=== PATIENT | female | born 1990 | race African-American/Black ===

== ENCOUNTER 2017-06-30 17:00 | Emergency (ER) | payer OTHER ==
[2017-06-30] MEDS ORDERED: Ondansetron HCl/PF 4 MG/2 ML Vial ONE (17:59)
[2017-06-30 18:04] LABS: #Lymphocytes 1.3 thou/uL (1.20-3.40); #Monocytes 0.5 thou/uL (0.11-0.59); #Neutrophils 8.8 thou/uL (1.40-6.50); %Basophils 0.3 % (0.0-1.0); %Eosinophils 0.1 % (0.0-10.0); %Lymphocytes 11.8 % (21.0-51.0); %Monocytes 4.3 % (0.0-10.0); Hematocrit 45.8 % (36.0-47.0); Mean Platelet Volume 7.3 fL (7.4-10.4); Red Blood Cell (RBC) Count 4.98 mill/uL (4.20-5.40); White Blood Cell (WBC) Count 10.6 thou/uL (4.8-10.8)
[2017-06-30 18:11] LABS: Bilirubin Negative (Negative); Blood, Urine Trace (Negative); Glucose, Urine (Dipstick) Negative (Negative); Ketone, Urine 15 mg/dL (Negative); Nitrite Positive (Negative); Protein, Urine (Dipstick) 300 mg/dL (Neg-Trace); Urobilinogen 0.2 mg/dL (0.2-1.0)
[2017-06-30 18:14] LABS: Bacteria/HPF 4+ HPF (None Seen)
[2017-06-30 18:26] LABS: Hyaline Casts/LPF 0-3 HYALINE CAST LPF (0-3 Hyaline); Renal Epithelial None Seen HPF (0-3); Transitional Epithelial 0-3 HPF (0-3)
[2017-06-30 18:39] LABS: ALT (SGPT) 16 U/L (8-55); AST (SGOT) 17 U/L (5-34); Alkaline Phosphatase 101 U/L (40-150); Anion Gap 17 mmol/L (10-20); BUN (Urea Nitrogen) 11 mg/dL (7.0-18.7); Bilirubin, Total 0.6 mg/dL (0.2-1.2); Calc. Creatinine Clearance 0 mL/min (70-130); Carbon Dioxide 21 mmol/L (22-29); Chloride 99 mmol/L (98-107); Estimated GFR-MDRD Greater than 90; Globulin 5.1 g/dL (2.4-3.5); Lipase 18 U/L (8-78); Protein, Total 10.1 g/dL (6.0-8.3)
--- OUTSIDE RECORDS SUMMARY | 2017-07-04 11:02 | XMS | Summary of Care ---
:1990 Author Name Vero Harris Address Unavailable Unavailable , Care Team Providers Name Role Phone LEISA TRUJILLO Unavailable Unavailable JHONATHAN MARTINEZ Unavailable Unavailable MONSE BARNEY Unavailable Unavailable WHITE, TRAVUS Unavailable Unavailable JHONATHAN BOOTHE MD Unavailable Unavailable , Unavailable Unavailable Functional Status Name Dates Details Functional status health issues are not documented Status: Name Dates Details Cognitive status health issues are not documented Status: Problems Name Dates Details Encounter for supervision of normal (V22.1, Z34.90) Status:Active Anemia(285.9, D64.9) Status:Active Encounter for supervision of normal in third trimester(V22.1, Z34.93 ) Status:Active Genital herpes simplex(054.10, A60.00) Status:Active Supervision of normal , second trimester(V22.1, Z34.82) Status: Active growth restriction(764.90) Status:Active General counselling and advice on contraception(V25.09, Z30.09) Status: Active 6 weeks follow-up(V24.2, Z39.2) Status:Active Essential hypertension(401.9, I10) Status:Active Elevated BP(401.9, I10) Status:Active IUD check up(V25.42, Z30.431) Status:Active Encounter for IUD insertion(V25.11, Z30.430) Status:Active Subacute and chronic vaginitis(616.10, N76.1) Status:Active Pre-existing hypertension in obstetric context in third trimester(642.03, O10.913) Status:Active Contraception(V25.9, Z30.9) Status:Active Medications Name Dates Details Ferralet 90 90-1 MG Oral Tablet TAKE 1 TABLET DAILY Quantity:30 Refills:6 WHITEM.D., TRAVUS Start :31-Aug-2015 Active Valtrex 500 MG Oral Tablet TAKE 1 TABLET TWICE DAILY. Quantity:60 Refills:1 KARRAMM.D., MONSE Start :08-Dec-2015 Active Doxycycline Monohydrate 100 MG Oral Capsule Take 2 tablets once Quantity:2 Refills:0 MIKE, JHONATHAN Start :22-Feb-2016 Active Allergies and Adverse Reactions Name Dates Details No Known Drug Allergies(Allergy) Status:Active Past Medical History Name Dates Details History of (V13.29) Status:Resolved Procedures Procedure Dates Details Procedures not documented Immunization Name Dates Details Tdap (Adacel) on:06-Oct-2015 Lot #:[id number] Family History Name Dates Details Family history of hypertension(V17.49, Z82.49) Status:Active Family history of asthma(V17.5, Z82.5) Status:Active Name Dates Details Family history of hypertension(V17.49, Z82.49) Status:Active Family history of High cholesterol(272.0, E78.00) Status:Active Social History Name Dates Details - Status: Name Dates Details Smoker. current status unknown Never smoker Vital Signs Date Test Result Details 96-Ppl-654655:20 BP Systolic 138mm[Hg] Status:Comments:Location: LUE; Position: Sitting BP Diastolic 92mm[Hg] Status:Comments:Location: LUE; Position: Sitting Height 62in Status: Weight 153.375lb Status: Body Mass Index Calculated 28.05kg/m2 Status: Body Surface Area Calculated 1.71m2 Status: Temperature 98.1f Status:Comments:Method: Tympanic Heart Rate 96/min Status:Comments:Location: L Brachial Artery; Quality: Normal Respiration Rate 14/min Status:Comments:Quality: Normal Results Date Description Value Details Results not documented Plan of Care Name Dates Details Planned Observations Planned Goals not documented Instructions Name Dates Details Instructions not documented Encounters Appointment; MARY BETH PETERSON M.D. On:30-Aug-2015 13:00 Encounter Diagnosis:Problem not documented Appointment; MANAGER MANAGED BACKUP SERVICES, ROOM1 On:06-Sep-2015 14:15 Encounter Diagnosis:Problem not documented Appointment; LEIGHANN WEST M.D. On:06-Sep-2015 15:00 Encounter Diagnosis:Problem not documented Appointment; LEIGHANN WEST M.D. On:06-Oct-2015 13:30 Encounter Diagnosis:Problem not documented Appointment; OB/RES, ULTRASOUND On:18-Oct-2015 14:00 Encounter Diagnosis:Problem not documented Appointment; MANAGER MANAGED BACKUP SERVICES, ROOM1 On:26-Oct-2015 15:15 Encounter Diagnosis:Problem not documented Appointment; MARY BETH PETERSON M.D. On:01-Nov-2015 10:30 Encounter Diagnosis:Problem not documented Appointment; OB/RES, ULTRASOUND On:01-Nov-2015 11:30 Encounter Diagnosis:Problem not documented Appointment; MANAGER MANAGED BACKUP SERVICES, ROOM2 On:08-Nov-2015 11:15 Encounter Diagnosis:Problem not documented Appointment; MANAGER MANAGED BACKUP SERVICES, ROOM2 On:17-Nov-2015 7:45 Encounter Diagnosis:Problem not documented Appointment; MARY BETH PETERSON M.D. On:17-Nov-2015 8:45 Encounter Diagnosis:Problem not documented Appointment; MANAGER MANAGED BACKUP SERVICES, ROOM1 On:24-Nov-2015 10:00 Encounter Diagnosis:Problem not documented Appointment; MARY BETH PETERSON M.D. On:01-Dec-2015 8:45 Encounter Diagnosis:Problem not documented Appointment; , PROVIDER On:01-Dec-2015 10:00 Encounter Diagnosis:Problem not documented Appointment; OB/RES, ULTRASOUND On:01-Dec-2015 15:30 Encounter Diagnosis:Problem not documented Appointment; MARY BETH PETERSON M.D. On:08-Dec-2015 9:00 Encounter Diagnosis:Problem not documented Appointment; OB/RES, ULTRASOUND On:09-Dec-2015 15:30 Encounter Diagnosis:Problem not documented Appointment; OB/RES, ULTRASOUND On:15-Dec-2015 10:30 Encounter Diagnosis:Problem not documented Appointment; ROBERT TONG M.D. On:15-Dec-2015 11:00 Encounter Diagnosis:Problem not documented Appointment; OB/RES, ULTRASOUND On:22-Dec-2015 13:30 Encounter Diagnosis:Problem not documented Appointment; JHONATHAN MARTINEZ M.D. On:01-Feb-2016 14:00 Encounter Diagnosis:Problem not documented Appointment; LEISA TRUJILLO M.D. On:15-Feb-2016 13:00 Encounter Diagnosis:Problem not documented Appointment; JHONATHAN MARTINEZ M.D. On:15-Feb-2016 14:00 Encounter Diagnosis:Problem not documented Appointment; JHONATHAN MARTINEZ M.D. On:22-Feb-2016 11:15 Encounter Diagnosis:Problem not documented Appointment; FELIZ NURSE On:22-Feb-2016 13:00 Encounter Diagnosis:Problem not documented Appointment; LEISA TRUJILLO M.D. On:24-Apr-2017 15:00 Encounter Diagnosis:Problem not documented
--- OUTSIDE RECORDS SUMMARY | 2017-07-04 11:02 | XMS | Summary of Care ---
:1990 Author Name LEISA TRUJILLO Address Unavailable Unavailable , Care Team Providers Name Role Phone TRUJILLOLEISA Unavailable Unavailable JHONATHAN MARTINEZ Unavailable Unavailable MONSE BARNEY Unavailable Unavailable WHITE TRAV Unavailable Unavailable JHONATHAN BOOTHE MD Unavailable Unavailable [...] third trimester(642.03, O10.913) Status:Active Contraception(V25.9, Z30.9) Status:Active Gastroenteritis(558.9, K52.9) Status:Active Follow up(V67.9, Z09) Status:Active Medications Name Dates Details Ferralet 90 90-1 MG Oral Tablet TAKE 1 TABLET DAILY Quantity:30 Refills:6 WHITEM.DBonnie, TRAVUS Start :31-Aug-2015 Active Valtrex 500 MG Oral Tablet TAKE 1 TABLET TWICE DAILY. Quantity:60 Refills:1 DINESHMONSE Start :08-Dec-2015 Active Doxycycline Monohydrate 100 MG Oral Capsule Take 2 tablets once Quantity:2 Refills:0 MIKEJHONATHAN Start :22-Feb-2016 Active Allergies and Adverse Reactions Name Dates Details No Known Drug Allergies(Allergy) Status:Active Past Medical History Name Dates Details History of (V13.29) Status:Resolved Procedures Procedure Dates Details [[facility]] CULTURE, STOOL (CAMPYLOBACTER, SALMONELLA/SHIGELLA) Date:24-Apr-2017 [[facility]] HELICOBACTER PYLORI AG, EIA, STOOL Date:24-Apr-2017 Immunization Name Dates Details Tdap (Adacel) on:06-Oct-2015 Lot #:[id number] Family History Name Dates Details Family history of hypertension(V17.49, Z82.49) Status:Active Family history of asthma(V17.5, Z82.5) Status:Active Name Dates Details Family history of hypertension(V17.49, Z82.49) Status:Active Family history of High cholesterol(272.0, E78.00) Status:Active Social History Name Dates Details - Status: Name Dates Details Smoker. current status unknown Never smoker Vital Signs Date Test Result Details [id number]-[id number]:20 BP Systolic 138mm[Hg] Status:Comments:Location: E; Position: Sitting BP Diastolic 92mm[Hg] Status:Comments:Location: E; Position: Sitting Height 62in Status: Weight 153.375lb Status: Body Mass Index Calculated 28.05kg/m2 Status: Body Surface Area Calculated 1.71m2 Status: Temperature 98.1f Status:Comments:Method: Tympanic Heart Rate 96/min Status:Comments:Location: Brachial Artery; Quality: Normal Respiration Rate 14/min Status:Comments:Quality: Normal Results Date Description Value Details 28-Bud-376537:00 [[facility]] HELICOBACTER PYLORI AG, EIA, STOOL H. pylori Stool Ag, EIA Negative Range:Negative 12-Nbq-695009:00 [L] Request Problem Request Problem [facility] Comments:No specimen received. TEST: [id number] Stool Culture Plan of Care Name Dates Details Planned Observations Planned Goals not documented Interventions Provided Labs/Procedures/Imaging[[facility]] CULTURE, STOOL (CAMPYLOBACTER, SALMONELLA/SHIGELLA) ; To Be Done: 24 Apr 2017[[facility]] HELICOBACTER PYLORI AG, EIA, STOOL; To Be Done: 24 Apr 2017 Instructions Name Dates Details Instructions not documented Encounters Appointment; MARY BETH PETERSON M.D. On:30-Aug-2015 13:00 Encounter Diagnosis:Problem not documented Appointment; MAMMOGRAPHER, ROOM1 On:06-Sep-2015 14:15 Encounter Diagnosis:Problem not documented Appointment; LEIGHANN WEST M.D. On:06-Sep-2015 15:00 Encounter Diagnosis:Problem not documented Appointment; LEIGHANN WEST M.D. On:06-Oct-2015 13:30 Encounter Diagnosis:Problem not documented Appointment; OB/RES, ULTRASOUND On:18-Oct-2015 14:00 Encounter Diagnosis:Problem not documented Appointment; MAMMOGRAPHER, ROOM1 On:26-Oct-2015 15:15 Encounter Diagnosis:Problem not documented Appointment; MARY BETH PETERSON M.D. On:01-Nov-2015 10:30 Encounter Diagnosis:Problem not documented Appointment; OB/RES, ULTRASOUND On:01-Nov-2015 11:30 Encounter Diagnosis:Problem not documented Appointment; MAMMOGRAPHER, ROOM2 On:08-Nov-2015 11:15 Encounter Diagnosis:Problem not documented Appointment; MAMMOGRAPHER, ROOM2 On:17-Nov-2015 7:45 Encounter Diagnosis:Problem not documented Appointment; MARY BETH PETERSON M.D. On:17-Nov-2015 8:45 Encounter Diagnosis:Problem not documented Appointment; MAMMOGRAPHER, ROOM1 On:24-Nov-2015 10:00 Encounter Diagnosis:Problem not documented [...]
--- OUTSIDE RECORDS SUMMARY | 2017-07-04 11:02 | XMS | Summary of Care ---
:1990 Author Name Juan Deras Address [facility] Unavailable , Care Team Providers Name Role Phone BraedenErnestoharishludmila Unavailable Unavailable JHONATHAN MARTINEZ Unavailable MONSE BARNEY Unavailable Unavailable WHITEMARY BETH Unavailable Unavailable JUAN PLATT MDJHONATHAN Unavailable Unavailable , Unavailable Unavailable Functional Status [...] Tablet TAKE 1 TABLET DAILY Quantity:30 Refills:6 KRISTENMMARY BETH Tate Start :31-Aug-2015 Active Valtrex 500 MG Oral Tablet TAKE 1 TABLET TWICE DAILY. Quantity:60 Refills:1 DINESHMONSE Start :08-Dec-2015 Active Doxycycline Monohydrate 100 MG Oral Capsule Take 2 tablets once Quantity:2 Refills:0 MIKEJHONATHAN Start :22-Feb-2016 Active Allergies and Adverse Reactions Name Dates Details No Known Drug Allergies(Allergy) Status:Active Past Medical History Name Dates Details History of (V13.29) Status:Resolved Procedures Procedure Dates Details [[facility]] HELICOBACTER PYLORI AG, EIA, STOOL Date:24-Apr-2017 [[facility]] CULTURE, STOOL (CAMPYLOBACTER, SALMONELLA/SHIGELLA) Date:24-Apr-2017 Immunization Name Dates Details Tdap (Adacel) on:06-Oct-2015 Lot #:[id number] Family History Name Dates Details Family history of hypertension(V17.49, Z82.49) Status:Active Family history of asthma(V17.5, Z82.5) Status:Active Name Dates Details Family history of hypertension(V17.49, Z82.49) Status:Active Family history of High cholesterol(272.0, E78.00) Status:Active Social History Name Dates Details - Status: Name Dates Details Smoker. current status unknown Never smoker Vital Signs Date Test Result Details 32-[id number]:20 BP Systolic 138mm[Hg] Status:Comments:Location: E; Position: Sitting BP Diastolic 92mm[Hg] Status:Comments:Location: [facility]; Position: Sitting Height 62in Status: Weight 153.375lb Status: Body Mass Index Calculated 28.05kg/m2 Status: Body Surface Area Calculated 1.71m2 Status: Temperature 98.1f Status:Comments:Method: Tympanic Heart Rate 96/min Status:Comments:Location: Brachial Artery; Quality: Normal Respiration Rate 14/min Status:Comments:Quality: Normal Results Date Description Value Details 31-[id number]:00 [[facility]] HELICOBACTER PYLORI AG, EIA, STOOL H. pylori Stool Ag, EIA Negative Range:Negative 33-Tdb-[id number]:00 [L] Request Problem Request Problem NOSR Comments:No specimen received. TEST: [id number] Stool Culture Plan of Care Name Dates Details Planned Observations Planned Goals not documented Instructions Name Dates Details Instructions not documented Encounters Appointment; MARY BETH PETERSON M.D. On:30-Aug-2015 13:00 Encounter Diagnosis:Problem not documented Appointment; LATEX DIPPER, ROOM1 On:06-Sep-2015 14:15 Encounter Diagnosis:Problem not documented Appointment; LEIGHANN WEST M.D. On:06-Sep-2015 15:00 Encounter Diagnosis:Problem not documented Appointment; LEIGHANN WEST M.D. On:06-Oct-2015 13:30 Encounter Diagnosis:Problem not documented Appointment; OB/RES, ULTRASOUND On:18-Oct-2015 14:00 Encounter Diagnosis:Problem not documented Appointment; LATEX DIPPER, ROOM1 On:26-Oct-2015 15:15 Encounter Diagnosis:Problem not documented Appointment; MARY BETH PETERSON M.D. On:01-Nov-2015 10:30 Encounter Diagnosis:Problem not documented Appointment; OB/RES, ULTRASOUND On:01-Nov-2015 11:30 Encounter Diagnosis:Problem not documented Appointment; LATEX DIPPER, ROOM2 On:08-Nov-2015 11:15 Encounter Diagnosis:Problem not documented Appointment; LATEX DIPPER, ROOM2 On:17-Nov-2015 7:45 Encounter Diagnosis:Problem not documented Appointment; MARY BETH PETERSON M.D. On:17-Nov-2015 8:45 Encounter Diagnosis:Problem not documented Appointment; LATEX DIPPER, ROOM1 On:24-Nov-2015 10:00 Encounter Diagnosis:Problem not documented [...] On:22-Feb-2016 11:15 Encounter Diagnosis:Problem not documented Appointment; [facility] NURSE On:22-Feb-2016 13:00 Encounter Diagnosis:Problem not documented Appointment; LEISA TRUJILLO M.D. On:24-Apr-2017 15:00 Encounter Diagnosis:Problem not documented
--- OUTSIDE RECORDS SUMMARY | 2017-07-04 11:02 | XMS | Summary of Care ---
:1990 Author Name Nena Petty Address [facility] Unavailable , Care Team Providers Name Role Phone JHONATHAN MARTINEZ Unavailable Nena Petty Unavailable Unavailable MONSE BARNEY Unavailable Unavailable WHITE TRAVUS Unavailable Unavailable JUAN PLATT MOJHONATHAN Unavailable Unavailable , Unavailable Unavailable Functional Status [...] Status:Active Contraception(V25.9, Z30.9) Status:Active Gastroenteritis(558.9, K52.9) Status:Active Medications Name Dates Details Ferralet 90 [...] of (V13.29) Status:Resolved Procedures Procedure Dates Details [[facility]] CULTURE, STOOL (CAMPYLOBACTER, SALMONELLA/SHIGELLA) Date:24-Apr-2017 [[facility]] HELICOBACTER PYLORI AG, EIA, STOOL Date:24-Apr-2017 Immunization Name Dates Details Tdap (Adacel) on:06-Oct-2015 Lot #:[id number] Family History Name Dates Details Family history of hypertension(V17.49, Z82.49) Status:Active Family history of asthma(V17.5, Z82.5) Status:Active Name Dates Details Family history of hypertension(V17.49, Z82.49) Status:Active Family history of High cholesterol(272.0, E78.00) Status:Active Social History Name Dates Details - Status: Name Dates Details Smoker. current status unknown Never smoker Vital Signs Date Test Result Details [id number]-[id number]:20 BP Systolic 138mm[Hg] Status:Comments:Location: LUE; Position: Sitting BP Diastolic 92mm[Hg] Status:Comments:Location: E; [...] Observations Planned Goals not documented Interventions Provided Follow-ups/ReferralsGastroenterology Referral; To Be Done: 24 Apr 2017 Instructions Name Dates Details Instructions not documented Encounters Appointment; MARY BETH PETERSON M.D. On:30-Aug-2015 13:00 Encounter Diagnosis:Problem not documented Appointment; ELEMENTARY ASSISTANT TEACHER, ROOM1 On:06-Sep-2015 14:15 Encounter Diagnosis:Problem not documented Appointment; LEIGHANN WEST M.D. On:06-Sep-2015 15:00 Encounter Diagnosis:Problem not documented Appointment; LEIGHANN WEST M.D. On:06-Oct-2015 13:30 Encounter Diagnosis:Problem not documented Appointment; OB/RES, ULTRASOUND On:18-Oct-2015 14:00 Encounter Diagnosis:Problem not documented Appointment; ELEMENTARY ASSISTANT TEACHER, ROOM1 On:26-Oct-2015 15:15 Encounter Diagnosis:Problem not documented Appointment; MARY BETH PETERSON M.D. On:01-Nov-2015 10:30 Encounter Diagnosis:Problem not documented Appointment; OB/RES, ULTRASOUND On:01-Nov-2015 11:30 Encounter Diagnosis:Problem not documented Appointment; ELEMENTARY ASSISTANT TEACHER, ROOM2 On:08-Nov-2015 11:15 Encounter Diagnosis:Problem not documented Appointment; ELEMENTARY ASSISTANT TEACHER, ROOM2 On:17-Nov-2015 7:45 Encounter Diagnosis:Problem not documented Appointment; MARY BETH PETERSON M.D. On:17-Nov-2015 8:45 Encounter Diagnosis:Problem not documented Appointment; ELEMENTARY ASSISTANT TEACHER, ROOM1 On:24-Nov-2015 10:00 Encounter Diagnosis:Problem not documented [...] On:22-Feb-2016 11:15 Encounter Diagnosis:Problem not documented Appointment; NURSE FELIZ On:22-Feb-2016 13:00 Encounter Diagnosis:Problem not documented Appointment; LEISA TRUJILLO M.D. On:24-Apr-2017 15:00 Encounter Diagnosis:Problem not documented
--- OUTSIDE RECORDS SUMMARY | 2017-07-04 11:02 | XMS | Summary of Care ---
:1990 Author Name LEISA TRUJILLO Address Unavailable Unavailable , Care Team Providers Name Role Phone RONNIELEISA Unavailable Unavailable JHONATHAN MARTINEZ Unavailable Unavailable MONSE BARNEY Unavailable Unavailable WHITE TRAVUS Unavailable Unavailable JHONATHAN BOOTHE MD Unavailable [...] Capsule Take 2 tablets once Quantity:2 Refills:0 MIKE JHONATHAN Start :22-Feb-2016 Active Allergies and Adverse Reactions Name Dates Details No Known Drug Allergies(Allergy) Status:Active Past Medical History Name Dates Details History of (V13.29) Status:Resolved Procedures Procedure Dates Details [[facility]] HELICOBACTER PYLORI AG, EIA, STOOL Date:24-Apr-2017 [[facility]] CULTURE, STOOL (CAMPYLOBACTER, SALMONELLA/SHIGELLA) Date:24-Apr-2017 Immunization Name Dates Details Tdap (Adacel) on:06-Oct-2015 Lot #:[id number] Family History Name Dates Details Family history of hypertension(V17.49, Z82.49) Status:Active Family history of asthma(V17.5, Z82.5) Status:Active Name Dates Details Family history of hypertension(V17.49, Z82.49) Status:Active Family history of High cholesterol(272.0, E78.00) Status:Active Social History Name Dates Details - Status: Name Dates Details Smoker. current status unknown Never smoker Vital Signs Date Test Result Details [id number] BP Systolic 138mm[Hg] Status:Comments:Location: LUE; Position: Sitting [...] Details Planned Observations Planned Goals not documented Planned Encounters Gastroenterology Referral Interventions Provided Labs/Procedures/Imaging[QL] CULTURE, STOOL (CAMPYLOBACTER, SALMONELLA/SHIGELLA) ; To Be Done: 24 Apr 2017[QL] HELICOBACTER PYLORI AG, EIA, STOOL; To Be Done: 24 Apr 2017 Instructions Name Dates Details Instructions not documented Encounters Appointment; MARY BETH PETERSON M.D. On:30-Aug-2015 13:00 Encounter Diagnosis:Problem not documented Appointment; YARD DRIVER, ROOM1 On:06-Sep-2015 14:15 Encounter Diagnosis:Problem not documented Appointment; LEIGHANN WEST M.D. On:06-Sep-2015 15:00 Encounter Diagnosis:Problem not documented Appointment; LEIGHANN WEST M.D. On:06-Oct-2015 13:30 Encounter Diagnosis:Problem not documented Appointment; OB/RES, ULTRASOUND On:18-Oct-2015 14:00 Encounter Diagnosis:Problem not documented Appointment; YARD DRIVER, ROOM1 On:26-Oct-2015 15:15 Encounter Diagnosis:Problem not documented Appointment; MARY BETH PETERSON M.D. On:01-Nov-2015 10:30 Encounter Diagnosis:Problem not documented Appointment; OB/RES, ULTRASOUND On:01-Nov-2015 11:30 Encounter Diagnosis:Problem not documented Appointment; YARD DRIVER, ROOM2 On:08-Nov-2015 11:15 Encounter Diagnosis:Problem not documented Appointment; YARD DRIVER, ROOM2 On:17-Nov-2015 7:45 Encounter Diagnosis:Problem not documented Appointment; MARY BETH PETERSON M.D. On:17-Nov-2015 8:45 Encounter Diagnosis:Problem not documented Appointment; YARD DRIVER, ROOM1 On:24-Nov-2015 10:00 Encounter Diagnosis:Problem not documented [...]
== END 2017-06-30 19:32 | disposition home or self-care (01) ==
LOC: ERS 17:00
DX: N39.0 Urinary tract infection, site not specified (principal); K21.9 Gastro-esophageal reflux disease without esophagitis; I10 Essential (primary) hypertension
CPT/HCPCS: 80053; 81003; 81015; 81025; 83690; 85025; 96361; 96374; J2405

== ENCOUNTER 2017-10-16 17:16 | Emergency (ER) | payer OTHER ==
[2017-10-16 18:24] LABS: Bilirubin Small (Negative); Blood, Urine Negative (Negative); Clarity CLEAR (Clear); Glucose, Urine (Dipstick) Negative (Negative); Leukocyte Negative (Negative); Nitrite Negative (Negative); Protein, Urine (Dipstick) 100 mg/dL (Neg-Trace); Specific Gravity, Urine 1.034 (1.002-1.036); pH, Urine 6.5 (5.0-9.0)
[2017-10-16 18:26] LABS: Bacteria/HPF None Seen HPF (None Seen); Pregnancy Test - Urine (BHCG) Negative (Negative); Pregu Control Background? CLEAR/WHITE (CLR/WHITE); Pregu Control Bar Appear? YES (CONTROL BAR); Specific Gravity 1.034 (1.002-1.036)
[2017-10-16 18:29] LABS: Mean Corpuscular HGB CONC 33.2 g/dL (32.0-36.0); Mean Corpuscular Hemoglobin 30.5 pg (27.0-31.0); Mean Corpuscular Volume 91.8 fl (81.0-99.0); Platelet Count 406 thou/uL (130-400); RBC Distribution Width 12.1 % (11.5-14.5); Red Blood Cell (RBC) Count 5.26 mill/uL (4.20-5.40); White Blood Cell (WBC) Count 8.1 thou/uL (4.8-10.8)
[2017-10-16 18:29] LABS: Pathc Cast-AUWi Flag 2.84 (0-2.49)
[2017-10-16 18:36] LABS: Hyaline Casts/LPF 0-3 HYALINE CAST LPF (0-3 Hyaline); Manual Microscopic Reviewed? No Path Casts Seen; Renal Epithelial None Seen HPF (0-3); Transitional Epithelial NONE SEEN HPF (0-3)
[2017-10-16 18:39] LABS: Lymphocytes 36 % (21-51); MDiff Complete? YES; Monocytes 11 % (0-10); Neutrophil 53 % (42-75); PLT Morphology Comment Appears Increased
[2017-10-16 18:48] LABS: ALT (SGPT) 12 U/L (8-55); AST (SGOT) 16 U/L (5-34); Albumin 4.7 g/dL (3.5-5.0); Alkaline Phosphatase 79 U/L (40-150); Anion Gap 13 mmol/L (10-20); BUN (Urea Nitrogen) 15 mg/dL (7.0-18.7); Bilirubin, Total 0.8 mg/dL (0.2-1.2); Calc. Creatinine Clearance 0 mL/min (70-130); Calcium 9.7 mg/dL (7.8-10.44); Carbon Dioxide 25 mmol/L (22-29); Chloride 97 mmol/L (98-107); Estimated GFR-MDRD 72; Globulin 4.5 g/dL (2.4-3.5); Glucose 101 mg/dL (70-105); Lipase 17 U/L (8-78); Potassium 3.8 mmol/L (3.5-5.1); Protein, Total 9.2 g/dL (6.0-8.3); Sodium 131 mmol/L (136-145)
[2017-10-16] MEDS ORDERED: Ondansetron HCl/PF 4 MG/2 ML Vial ONE (20:40)
[2017-10-16 21:47] LABS: Amphetamine Not Detected (NotDetected); Barbiturates Screen Not Detected (NotDetected); Benzodiazepine Screen Not Detected (NotDetected); Cocaine Metabolite Screen Not Detected (NotDetected); Medtox Control Line Valid? VALID (VALID); Medtox Reader # READER 1; Methadone Not Detected (NotDetected); Methamphetamine Not Detected (NotDetected); Opiate Screen Not Detected (NotDetected); Oxycodone Screen Not Detected (NotDetected); Phencyclidine (PCP) Not Detected (NotDetected); THC/Cannabinoid Screen Detected (NotDetected); Tricyclic Screen Not Detected (NotDetected)
== END 2017-10-16 23:47 | disposition home or self-care (01) ==
LOC: ERS 17:16
DX: E86.0 Dehydration (principal); G43.A0 Cyclical vomiting, in migraine, not intractable; K21.9 Gastro-esophageal reflux disease without esophagitis; I10 Essential (primary) hypertension
CPT/HCPCS: 36415; 80053; 80306; 81003; 81015; 81025; 83690; 83735; 85025; 96361; 96374; J2405

== ENCOUNTER 2017-12-23 13:28 | Observation (INO) | payer OTHER ==
[2017-12-23] MEDS ORDERED: Ketorolac Tromethamine 30 MG/ML VIAL ONE ×2 (14:37→14:46)
[2017-12-23 14:42] LABS: #Lymphocytes 0.8 thou/uL (1.20-3.40); #Monocytes 0.2 thou/uL (0.11-0.59); #Neutrophils 7.2 thou/uL (1.40-6.50); %Basophils 0.1 % (0.0-1.0); %Eosinophils 0.2 % (0.0-10.0); %Lymphocytes 9.6 % (21.0-51.0); %Monocytes 2.6 % (0.0-10.0); %Neutrophils 87.5 % (42.0-75.0); Hemoglobin 12.9 g/dL (12.0-16.0); Mean Corpuscular HGB CONC 33.7 g/dL (32.0-36.0); Mean Corpuscular Hemoglobin 31.5 pg (27.0-31.0); Mean Corpuscular Volume 93.4 fl (81.0-99.0); Mean Platelet Volume 7.7 fL (7.4-10.4); Platelet Count 287 thou/uL (130-400); RBC Distribution Width 12.4 % (11.5-14.5); White Blood Cell (WBC) Count 8.2 thou/uL (4.8-10.8)
[2017-12-23] MEDS ORDERED: Ondansetron ODT 4 MG TAB ONE (14:46)
[2017-12-23] MEDS ORDERED: Promethazine HCl 25 MG/ML VIAL ONE (15:00)
[2017-12-23 15:49] LABS: Albumin 5.1 g/dL (3.5-5.0)
[2017-12-23 15:50] LABS: Chloride 105 mmol/L (98-107); Potassium 4.3 mmol/L (3.5-5.1); Sodium 135 mmol/L (136-145)
[2017-12-23 15:51] LABS: Glucose 103 mg/dL (70-105)
[2017-12-23 15:52] LABS: Globulin 4.5 g/dL (2.4-3.5); Protein, Total 9.6 g/dL (6.0-8.3)
[2017-12-23 15:53] LABS: Anion Gap 17 mmol/L (10-20); Bilirubin, Total 0.5 mg/dL (0.2-1.2); Carbon Dioxide 17 mmol/L (22-29)
[2017-12-23 15:54] LABS: Alkaline Phosphatase 75 U/L (40-150)
[2017-12-23 15:55] LABS: Calc. Creatinine Clearance 0 mL/min (70-130); Estimated GFR-MDRD Greater than 90
[2017-12-23 15:56] LABS: BUN (Urea Nitrogen) 9 mg/dL (7.0-18.7)
[2017-12-23 15:57] LABS: ALT (SGPT) 17 U/L (8-55); AST (SGOT) 25 U/L (5-34)
[2017-12-23 15:58] LABS: Lipase 7 U/L (8-78)
[2017-12-23 16:03] LABS: Bilirubin Negative (Negative); Blood, Urine Negative (Negative); Clarity CLEAR (Clear); Glucose, Urine (Dipstick) Negative (Negative); Leukocyte Negative (Negative); Nitrite Negative (Negative); Protein, Urine (Dipstick) 100 mg/dL (Neg-Trace); Specific Gravity, Urine 1.027 (1.002-1.036); Urobilinogen 0.2 mg/dL (0.2-1.0)
[2017-12-23 16:05] LABS: Bacteria/HPF None Seen HPF (None Seen); Hyaline Casts/LPF 4-6 HYALINE CAST LPF (0-3 Hyaline); Pathc Cast-AUWi Flag 0.58 (0-2.49); WBC/HPF 0-3 HPF (0-3)
[2017-12-23] MEDS ORDERED: chlordiazePOXIDE HCl 25 MG CAP ONE (16:17)
[2017-12-23 16:23] LABS: Crystals/HPF None Seen HPF (Negative); Oval Fat Bodies/HPF None Seen HPF (None Seen); Renal Epithelial None Seen HPF (0-3); Transitional Epithelial NONE SEEN HPF (0-3); Trichomonas/HPF None Seen HPF (None Seen)
[2017-12-23] MEDS ORDERED: chlordiazePOXIDE HCl 25 MG CAP PO SCH (16:30)
[2017-12-23 16:33] LABS: BHCG - Serum Negative (NEGATIVE); Pregs Control Background? CLEAR/WHITE (CLR/WHITE); Pregs Control Bar Appear? YES (CONTROL BAR)
[2017-12-23] MEDS ORDERED: Acetaminophen 325 MG TAB PO PRN (16:43)
[2017-12-23] MEDS ORDERED: Ondansetron HCl/PF 4 MG/2 ML Vial IVP PRN (16:43)
[2017-12-23 16:46] LABS: Amphetamine Not Detected (NotDetected); Barbiturates Screen Not Detected (NotDetected); Benzodiazepine Screen Not Detected (NotDetected); Cocaine Metabolite Screen Not Detected (NotDetected); Medtox Control Line Valid? VALID (VALID); Medtox Reader # READER 1; Methadone Not Detected (NotDetected); Methamphetamine Not Detected (NotDetected); Opiate Screen Not Detected (NotDetected); Oxycodone Screen Not Detected (NotDetected); Phencyclidine (PCP) Not Detected (NotDetected); THC/Cannabinoid Screen Detected (NotDetected); Tricyclic Screen Not Detected (NotDetected)
[2017-12-23] MEDS ORDERED: Ondansetron ODT 4 MG TAB SL PRN (17:08)
[2017-12-23] MEDS ORDERED: Lorazepam 2 MG/ML VIAL SLOW IVP PRN (17:10)
--- NOTE | 2017-12-23 17:55 | HP ---
PRIMARY CARE PHYSICIAN: Naila Mai MD CHIEF COMPLAINT: Nausea and vomiting x1 day. HISTORY OF PRESENT ILLNESS: The patient is a very pleasant 27-year-old female who presents to the [facility] with complaints of nausea and vomiting x1 day. The patient states that she has been working [place] hard putting together her son's birthday and has not been sleeping very much. Her son's birthday was yesterday and she had a hamburger for the son's birthday. The patient stated that she was doing well. She went to bed last night, woke up this morning at 1:00 a.m. with significant nausea and vom iting, and had 1 episode of diarrhea. The patient further states that she has had cyclical nausea an d vomiting in the past and has been seen by a self sealing fuel tank builder and had undergone all the testing an d they could not find anything. The patient states that she did take a marijuana brownie yesterday; however, she states that she does not feel that her cyclical vomiting is related to that. The patien t normally states that she smokes marijuana at times; however, has not been doing it recently. The p atient denies any other people that were sick after eating food at the son's birthday alliance party. The pat ient states that this happens to her every 2 months. REVIEW OF SYSTEMS: The following complete review of systems was negative, unless otherwise mentioned in the HPI or below: Constitutional: Weight loss or gain, ability to conduct usual activities. Skin: Rash, itching. Eyes: Double vision, pain. ENT/Mouth: Nose bleeding, neck stiffness, pain, tenderness. Cardiovascular: Palpitations, dyspnea on exertion, orthopnea. Respiratory: Shortness of breath, wheezing, cough, hemoptysis, fever or night sweats. Gastrointestinal: Poor appetite, abdominal pain, heartburn, nausea, vomiting, constipation, or diarrhea. Genitourinary: Urgency, frequency, dysuria, nocturia. Musculoskeletal: Pain, swelling. Neurologic/Psychiatric: Anxiety, depression. Allergy/Immunologic: Skin rash, bleeding tendency. 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 SOCIAL HISTORY: She denies any alcohol or tobacco use; however, she does sometimes does do marijuana . PAST SURGICAL HISTORY: She had barium swallow. She also had an endoscopy in [facility], which reported to be normal, and had a HIDA scan which appears to be normal in 2012. MEDICATIONS: She takes lisinopril 20 mg daily, vitamin C, Pepcid, and also Zofran as needed. ALLERGIES: She has no known drug allergies. PHYSICAL EXAMINATION: VITAL SIGNS: Temperature of 98.1, respirations 14, pulse was 100, blood pressure 170/120. GENERAL: She is awake, alert, oriented x3. She is very significantly nauseated. CARDIOVASCULAR: S1, S2 present. She is a little tachycardic. LUNGS: Clear to auscultation, rhonchi, wheezes noted. ABDOMEN: Soft, nontender. Bowel sounds are present x2. EXTREMITIES: No edema. LABORATORY RESULTS: As the following, WBCs are 8.2, hemoglobin of 12.9, hematocrit of 38.3, platelet s of 287. I do not see any bands. Chemistry: Sodium of 135, potassium of 4.3, bicarbonate is 17, B UN of 9, creatinine 0.81. Her LFTs are completely normal. test is negative. Lipase is 7. Urine appears to be pretty clear. Does indicate some ketones, which is most likely secondary to he r vomiting. Toxicology, she is positive for marijuana. ASSESSMENT AND PLAN: The patient is a very pleasant 27-year-old female who presents to the hospital with complaints of nausea and vomiting. 1. Nausea and vomiting, cyclic. The patient states that she has been having this problem since she was a child. She had seen a self sealing fuel tank builder and had endoscopies which was essentially normal. Th e patient states that symptoms stressors can bring this on. However, we did detect some marijuana in her UDS, but the patient states that she has not smoked anything recently, but she did eat a marijua na cookie or brownie. We will start the patient on some gentle IV hydration. We will give her Zofra n; however, we do not have IV Zofran, so will give her some Phenergan and some Ativan only if her [place] and vomiting is significant. We will start the patient on some Pepcid b.i.d. 2. Abdominal pain. The patient's abdominal pain has subsided. 3. Deep venous thrombosis prophylaxis. We will put patient on subcu heparin.
[2017-12-23 18:53] VITALS: BMI 29.4
[2017-12-23] MEDS: Dextrose 5 % And 0.9 % NaCl 1,000 ML IV SCH (20:04)
[2017-12-23] MEDS: Famotidine 40 MG/4 ML VIAL SLOW IVP SCH (20:05)
[2017-12-23] MEDS: Heparin 5,000 UNITS/ML VIAL SC SCH (20:06)
[2017-12-23] MEDS ORDERED: Ketorolac Tromethamine 30 MG/ML VIAL IVP PRN (20:51)
[2017-12-24] MEDS: Promethazine HCl 25 MG/ML VIAL IM/IV PRN ×3 (00:37→18:33)
[2017-12-24] MEDS: Dextrose 5 % And 0.9 % NaCl 1,000 ML IV SCH ×3 (04:08→22:49)
[2017-12-24 05:42] LABS: ALT (SGPT) 13 U/L (8-55); AST (SGOT) 14 U/L (5-34); Albumin 4.4 g/dL (3.5-5.0); Alkaline Phosphatase 63 U/L (40-150); Anion Gap 12 mmol/L (10-20); BUN (Urea Nitrogen) 5 mg/dL (7.0-18.7); Bilirubin, Total 0.5 mg/dL (0.2-1.2); Calc. Creatinine Clearance 127 mL/min (70-130); Calcium 8.8 mg/dL (7.8-10.44); Carbon Dioxide 19 mmol/L (22-29); Chloride 107 mmol/L (98-107); Estimated GFR-MDRD Greater than 90; Globulin 3.5 g/dL (2.4-3.5); Glucose 125 mg/dL (70-105); Potassium 3.6 mmol/L (3.5-5.1); Protein, Total 7.9 g/dL (6.0-8.3); Sodium 134 mmol/L (136-145)
[2017-12-24 06:18] LABS: #Lymphocytes 1.3 thou/uL (1.20-3.40); #Neutrophils 6.7 thou/uL (1.40-6.50); %Basophils 0.1 % (0.0-1.0); %Eosinophils 0.1 % (0.0-10.0); %Lymphocytes 14.4 % (21.0-51.0); %Neutrophils 74.5 % (42.0-75.0); Mean Corpuscular HGB CONC 33.2 g/dL (32.0-36.0); Mean Corpuscular Hemoglobin 30.3 pg (27.0-31.0); Mean Corpuscular Volume 91.2 fl (81.0-99.0); PLT Morphology Comment Appears Adequate; Platelet Count 292 thou/uL (130-400); RBC Distribution Width 11.8 % (11.5-14.5); RBC Morphology Normal; Red Blood Cell (RBC) Count 3.98 mill/uL (4.20-5.40)
[2017-12-24] MEDS ORDERED: Amlodipine 10 MG TAB PO SCH (09:15)
[2017-12-24] MEDS: Famotidine 40 MG/4 ML VIAL SLOW IVP SCH ×2 (09:47→20:41)
[2017-12-24] MEDS: Heparin 5,000 UNITS/ML VIAL SC SCH ×3 (09:48→20:41)
[2017-12-24] MEDS: Labetalol HCl 100 MG/20 ML VIAL SLOW IVP PRN (13:34)
--- NOTE | 2017-12-24 16:46 | PDOC.PN ---
- Subjective Encounter Start Date: 12/24/17 Encounter Start Time: 16:44 Pt seen for followup re: nausea and vomiting. Denies chest pain, shortness of breath, fevers or chills. Nausea++, unable to tolerate oral diet. - Objective MAR Reviewed: Yes Vital Signs & Weight: Vital Signs (12 hours) Temp Pulse Resp BP Pulse Ox 12/24/17 15:50 98.4 F 84 16 167/104 H 97 12/24/17 11:15 98.2 F 81 18 182/110 H 98 12/24/17 08:00 98.5 F 86 18 12/24/17 07:36 98.5 F 86 18 167/100 H 97 12/24/17 05:20 85 16 166/97 H Weight Weight 161 lb I&O: 12/23/17 12/24/17 12/25/17 06:59 06:59 06:59 Intake Total 980 Output Total 900 1000 Balance 80 -1000 Result Diagrams: 12/24/17 04:18 12/24/17 04:18 Phys Exam - Physical Examination Constitutional: NAD HEENT: PERRLA, moist MMs, sclera anicteric, 2+ tonsils Neck: no nodes, no JVD, supple, full ROM Respiratory: no wheezing, no rales, no rhonchi, clear to auscultation bilateral Cardiovascular: RRR, no rub Gastrointestinal: soft, non-tender, no distention, positive bowel sounds Neurological: moves all 4 limbs Psychiatric: normal affect Dx/Plan (1) Nausea and vomiting Code(s): R11.2 - NAUSEA WITH VOMITING, UNSPECIFIED Status: Acute Comment: Continue antiemetics, IV fluids (2) Hypertensive urgency Code(s): I16.0 - HYPERTENSIVE URGENCY Status: Acute Comment: Start daily amlodipine, PRN IV hydralazine (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 Review of Systems - Review of Systems Constitutional: weakness. negative: fever, chills, sweats, malaise Respiratory: negative: Cough, Shortness of Breath, SOB with Excertion, Pleuritic Pain, Wheezing Cardiovascular: negative: chest pain, palpitations, orthopnea, paroxysmal nocturnal dyspnea, edema, light headedness Gastrointestinal: Nausea, Vomiting. negative: Abdominal Pain, Diarrhea, Constipation, Melena, Hematochezia Genitourinary: negative: Dysuria, Frequency, Incontinence, Hematuria, Retention Skin: negative: Rash, Lesions, Walker, Bruising - Medications/Allergies Allergies/Adverse Reactions: Allergies Allergy/AdvReac Type Severity Reaction Status Date / Time No Known Allergies Allergy Verified 06/22/14 03:37 Medications: Current Medications Acetaminophen (Tylenol) 650 mg PO Q4H PRN PRN Reason: Headache/Fever or Pain Amlodipine Besylate (Norvasc) 10 mg PO DAILY [facility] Famotidine (Pepcid) 20 mg SLOW IVP Q12HR [facility] Last Admin: 12/24/17 09:47 Dose: 20 mg Heparin Sodium (Porcine) (Heparin) 5,000 units SC TID [facility] Last Admin: 12/24/17 16:06 Dose: 5,000 units Dextrose/Sodium Chloride (D5 0.9% Ns) 1,000 mls @ 125 mls/hr IV .Q8H [facility] Last Admin: 12/24/17 11:45 Dose: 1,000 mls Ketorolac Tromethamine (Toradol) 15 mg IVP Q6H PRN PRN Reason: Pain Stop: 12/28/17 20:52 Last Admin: 12/23/17 21:09 Dose: 15 mg Labetalol HCl (Normodyne) 5 mg SLOW IVP Q4H PRN PRN Reason: SBP Greater Than 180 Last Admin: 12/24/17 13:34 Dose: 5 mg Lorazepam (Ativan) 0.5 mg SLOW IVP Q6H PRN PRN Reason: Nausea/Vomiting Ondansetron HCl (Zofran) 4 mg IVP Q6H PRN PRN Reason: Nausea/Vomiting Ondansetron HCl (Zofran Odt) 4 mg SL Q6HR PRN PRN Reason: Nausea/Vomiting Promethazine HCl (Phenergan) 12.5 mg IM/IV Q6H PRN PRN Reason: Nausea/Vomiting Last Admin: 12/24/17 11:44 Dose: 12.5 mg
--- NOTE | 2017-12-24 17:50 | CT ---
CT BRAIN WITHOUT CONTRAST: INDICATIONS: Intractable nausea and vomiting without headache. COMPARISON: None. FINDINGS: No acute infarct, hemorrhage, or hydrocephalus is present. The septum pellucidum and third ventricle are midline. The skull and extracranial soft tissues are unremarkable. IMPRESSION: No acute intracranial abnormality. POS: HEMAL
[2017-12-25] MEDS: Labetalol HCl 100 MG/20 ML VIAL SLOW IVP PRN (04:30)
[2017-12-25] MEDS: Dextrose 5 % And 0.9 % NaCl 1,000 ML IV SCH (06:33)
[2017-12-25 08:17] VITALS: BP 165/108; TEMP 98.2
[2017-12-25] MEDS ORDERED: Amlodipine 10 MG TAB PO SCH (09:00)
[2017-12-25] MEDS: Famotidine 40 MG/4 ML VIAL SLOW IVP SCH (09:27)
[2017-12-25] MEDS: Heparin 5,000 UNITS/ML VIAL SC SCH (09:28)
--- NOTE | 2017-12-25 11:14 | DIS ---
DATE OF ADMISSION: 12/23/2017 DATE OF DISCHARGE: 12/25/2017 PRIMARY CARE PHYSICIAN: Naila Mai M.D. DISCHARGE DIAGNOSES: 1. Nausea and vomiting. 2. Hypertension. CONDITION OF PATIENT ON THE DAY OF DISCHARGE: Stable. I assessed Ms. Flores on the day of discha rge. She denies any chest pain or shortness of breath. She had not received any antinausea medicati ons since last night. PHYSICAL EXAMINATION: VITAL SIGNS: Stable. HEART: S1 and S2 are heard, regular. LUNGS: Clear to auscultation bilaterally. DISCHARGE MEDICATIONS: Amlodipine 10 mg daily, hydralazine 25 mg 3 times a day, Phenergan 25 mg ever y 8 hours as needed. HOSPITAL COURSE: Ms. Flores is a pleasant 27-year-old lady who was admitted to [facility] on 12/23/2017 for nausea and vomiting, likely induced by cannabis use. She was treat ed with intravenous fluids and nausea medications. She also had a noncontrast CT scan of the brain, which was unremarkable. She improved clinically. She had high blood pressure during this hospitalization and has been starte d on amlodipine and hydralazine. She has been advised to check her blood pressure and heart rate 3 t imes a day and show the readings to her primary care physician. She has also been advised to stop ca nnabis use. Many thanks for allowing me to participate in your patient's care. Please feel free to contact me wi th any questions or concerns. DISCHARGE DESTINATION: Home.
[2017-12-25] MEDS ORDERED: hydrALAZINE 25 MG TAB PO SCH (15:00)
== END 2017-12-25 11:10 | disposition home or self-care (01) ==
LOC: ERS 13:28 → 2SW 16:47
PROVIDERS: ADMIT Internal Medicine; ATTEND Internal Medicine
DX: R11.2 Nausea with vomiting, unspecified (principal); K55.1 Chronic vascular disorders of intestine; R10.9 Unspecified abdominal pain; Z79.899 Other long term (current) drug therapy
CPT/HCPCS: 36415; 70450; 80053; 80306; 81003; 81015; 83690; 84703; 85025; 87086; 96361; 96365; 96366; 96375; 96376; G0378; J1644; J1885; J2550; Q0162